=== PATIENT | female | born 1955 | race Caucasian/White ===

== ENCOUNTER 2017-09-12 13:40 | Emergency (ER) | payer BC ==
[~2017-09-12] VITALS: Ht 157.5 cm; Wt 73.7 kg
[~2017-09-12 13:40] MED LIST: CEPHALEXIN500 MG PO; CLINDAMYCIN HC300 MG PO; ENBREL50 MG/1 ML SC; FAMOTIDINE20 MG PO; HYDROXYCHLOROQ200 MG PO; LEVOTHYROXINE112 MCG PO; MELOXICAM7.5 MG PO; METFORMIN HCL500 MG PO; SIMVASTATIN20 MG PO; TRAMADOL HCL50 MG PO
[2017-09-12 14:12] LABS: HEMATOCRIT 43.5 % (36.0-46.0); HEMOGLOBIN 14.9 G/DL (11.9-15.5); MCH 30.6 PG (29.0-34.0); MCHC 34.3 G/DL (30.0-36.0); MCV 89.3 FL (83-99); PLATELET COUNT 198 K/uL (156-360); RBC DIS.WIDTH-CV 12.4 % (11.8-14.6); RBC DIS.WIDTH-SD 40.7 % (39-53); RED BLOOD COUNT 4.87 M/uL (3.80-5.20); WHITE BLOOD COUNT 6.4 K/uL (4.1-10.2)
[2017-09-12 14:24] LABS: CHLORIDE 110 mEq/L (99-109); POTASSIUM 3.8 mEq/L (3.7-5.4); SODIUM 141 mEq/L (136-147)
[2017-09-12 14:25] LABS: GLUCOSE 129 mg/dL (70-99)
[2017-09-12 14:29] LABS: CREATININE 0.9 mg/dL (0.6-1.3); GFR ESTIMATE (CALCULATED) > 59 mL/min/
[2017-09-12 14:30] LABS: UREA NITROGEN (BUN) 9 mg/dL (9-23)
[2017-09-12 14:33] LABS: TROP-I INTERPRETATION NEGATIVE; TROPONIN-I < 0.01 ng/mL (0.0-0.30)
[2017-09-12 16:12] VITALS: BP 108/65
== END 2017-09-12 16:13 | disposition home or self-care (01) ==
LOC: EME 13:40
PROVIDERS: Emergency Medicine
DX: F41.0 Panic disorder [episodic paroxysmal anxiety] (principal); R07.89 Other chest pain; J45.909 Unspecified asthma, uncomplicated; E11.9 Type 2 diabetes mellitus without complications; Z79.84 Long term (current) use of oral hypoglycemic drugs; K21.9 Gastro-esophageal reflux disease without esophagitis; F17.200 Nicotine dependence, unspecified, uncomplicated; Z88.0 Allergy status to penicillin; Z88.5 Allergy status to narcotic agent
CPT/HCPCS: 71046; 80048; 84484; 85027; 93005; 99281; 99284